=== PATIENT | male | born 1975 | race Two or more races ===

== ENCOUNTER 2020-08-23 20:52 | Emergency (ER) | payer MEDICAID ==
[~2020-08-23] VITALS: Ht 167.6 cm; Wt 87.1 kg
[2020-08-23] MEDS ORDERED: ACETAMINOPHEN 325 MG TAB PO ONE (21:15)
[2020-08-23 22:41] VITALS: BP 116/75
[2020-08-23] MEDS ORDERED: cefTRIAXone SOD 1,000 MG VL IM ONE (23:15)
[2020-08-23] MEDS ORDERED: KETOROLAC TROMETH 60MG/2ML VIAL IM ONE (23:15)
== END 2020-08-23 23:59 | disposition home or self-care (01) ==
LOC: ER 20:52
DX: L02.31 Cutaneous abscess of buttock (principal)
CPT/HCPCS: 96372; 99284; J0696; J1885

== ENCOUNTER → 2020-10-30 | Emergency (ER) | payer MEDICAID, OTHER ==
[~2020-10-30] VITALS: Ht 167.6 cm; Wt 86.2 kg
[2020-10-30 11:12] VITALS: BP 154/87
== END | disposition home or self-care (01) ==
LOC: ER 10:42
DX: S63.91XA Sprain of unspecified part of right wrist and hand, initial encounter (principal); S60.321A Blister (nonthermal) of right thumb, initial encounter; X58.XXXA Exposure to other specified factors, initial encounter; Y93.89 Activity, other specified; Y92.89 Other specified places as the place of occurrence of the external cause; Y99.8 Other external cause status
CPT/HCPCS: 73130

== ENCOUNTER → 2022-04-21 | Emergency (ER) | payer MEDICAID ==
[~2022-04-21] VITALS: Ht 167.6 cm; Wt 77.1 kg
[~2022-04-21] MED LIST: GLYCOPYRROLATE 0.2 MG/ML 1ML VIAL ONE; HYDR-4902 PO; HYDROmorphone HCL 2 MG/ML VL/or syr ONE; IOHEXOL 300 MG/ML 100ML BOTTLE IJ ONE; LEVO750T8 PO; METOCLOPRAMIDE HCL 5MG/ml INJ 2ml VIAL ONE; METR500T PO; MIDAZOLAM HCL 2MG/2ML 2ml VIAL (1mg/ml) ONE; MORPHINE SULFATE 4 MG/ML SYR/VIAL IV ONE; NEOSTIGMINE 1 MG/ML INJ (10mg/10ML VIAL) ONE; ONDANSETRON HCL 4 MG/2 ML VIAL IV ONE; ONDANSETRON HCL 4 MG/2 ML VIAL ONE; POVIDONE IODINE 10 % TOPICAL OINT 30GM TOP ONE; PROPOFOL 10 MG/ML 20 ML IV ONE; SODIUM CHLORIDE 0.9% 500 ML IVB ONE; SUCCINYLCHOLINE CHLORIDE 20 MG/ML 10ML VIAL IV ONE; ceFAZolin 1GM VL ONE; fentaNYL CITRATE 100 MCG/2 ML VL ONE
[2022-04-21 13:46] VITALS: BP 138/72
[2022-04-21 14:32] LABS: Basophils # (auto) 0.1 10 ^3/uL (0-0.2); Basophils % (auto) 0.5 % (0.0-2.0); Eosinophils # (auto) 0.1 10 ^3/uL (0-0.8); Eosinophils % (auto) 0.5 % (0.0-7.0); Hematocrit 48.9 % (41.0-53.0); Hemoglobin 16.7 g/dL (13.5-17.5); Lymphocytes # (auto) 1.3 10 ^3/uL (0.4-5.4); Lymphocytes % (auto) 10.3 % (10.0-50.0); Mean Corpuscular Hemoglobin 29.7 pg (28.0-32.0); Mean Corpuscular Hgb Conc. 34.2 g/dL (32.0-36.0); Monocytes # (auto) 0.7 10 ^3/uL (0-1.3); Monocytes % (auto) 5.4 % (0.0-12.0); Neutrophils # (auto) 10.8 10 ^3/uL (1.6-8.6); Neutrophils % (auto) 83.3 % (37.0-80.0); Nucleated Red Blood Cells % 0.1 %; Red Blood Cells 5.63 10^6/uL (4.5-5.90); Red Cell Distribution Width 14.2 % (11.8-14.3); White Blood Cell 12.9 10^3/uL (4.4-10.8)
[2022-04-21 15:33] LABS: Albumin 4.1 g/dL (3.4-5.0); BUN/Creatinine Ratio 13.1; Calcium 9.2 mg/dL (8.5-10.1); Potassium 3.6 mmol/L (3.5-5.1)
[2022-04-21 15:36] LABS: Bilirubin, Total 0.7 mg/dL (0.2-1.0); Total Protein 7.9 g/dL (6.4-8.2)
== END | disposition home or self-care (01) ==
LOC: EDUNIT# 13:45 → ER 13:46 → EDBD 13:46
DX: K40.90 Unilateral inguinal hernia, without obstruction or gangrene, not specified as recurrent (principal); F17.210 Nicotine dependence, cigarettes, uncomplicated
CPT/HCPCS: 36415; 74177; 76870; 80053; 83690; 85025; 99285; Q9967

== ENCOUNTER 2022-04-22 06:05 | Inpatient (IN) | payer MEDICAID ==
[~2022-04-22] VITALS: Ht 167.6 cm; Wt 87.4 kg
[2022-04-22 10:09] LABS: Basophils # (auto) 0.1 10 ^3/uL (0-0.2); Basophils % (auto) 0.4 % (0.0-2.0); Eosinophils # (auto) 0.1 10 ^3/uL (0-0.8); Eosinophils % (auto) 0.9 % (0.0-7.0); Hematocrit 49.8 % (41.0-53.0); Hemoglobin 16.6 g/dL (13.5-17.5); Lymphocytes # (auto) 1.3 10 ^3/uL (0.4-5.4); Mean Corpuscular Hemoglobin 29.5 pg (28.0-32.0); Mean Corpuscular Hgb Conc. 33.3 g/dL (32.0-36.0); Mean Corpuscular Volume 88.6 fL (80.0-100.0); Monocytes # (auto) 0.8 10 ^3/uL (0-1.3); Monocytes % (auto) 5.8 % (0.0-12.0); Neutrophils # (auto) 11.1 10 ^3/uL (1.6-8.6); Neutrophils % (auto) 82.9 % (37.0-80.0); Nucleated Red Blood Cells % 0.1 %; Red Blood Cells 5.63 10^6/uL (4.5-5.90); White Blood Cell 13.4 10^3/uL (4.4-10.8)
[2022-04-22 10:22] LABS: Albumin 3.9 g/dL (3.4-5.0); Calcium 8.8 mg/dL (8.5-10.1); Potassium 3.8 mmol/L (3.5-5.1)
[2022-04-22 10:25] LABS: Bilirubin, Total 0.8 mg/dL (0.2-1.0); Total Protein 8.3 g/dL (6.4-8.2)
[2022-04-22] MEDS ORDERED: SODIUM CHLORIDE 0.9% 1,000 ML IV ONE (11:30)
[2022-04-22] MEDS ORDERED: fentaNYL CITRATE 100 MCG/2 ML VL IV ONE (11:30)
[2022-04-22] MEDS ORDERED: LACTATED RINGER'S 1,000 ML IV ONE (11:45)
[2022-04-22] MEDS ORDERED: ceFAZolin 1GM/50ML 50 ML IV ONE (11:45)
[2022-04-22] MEDS ORDERED: ONDANSETRON HCL 4 MG/2 ML VIAL IV PRN ×2 (11:45→15:00)
[2022-04-22] MEDS ORDERED: BENZOCAINE (DENTAL) 20 % SPRAY 60ML MT ONE (12:11)
[2022-04-22 12:34] LABS: INR 1.05 (0.9-1.15); Partial Thromboplastin Time 32.4 sec (23.6-33.0)
[2022-04-22] MEDS ORDERED: cefTRIAXone 1GM/50ML D5W 50 ML IV ONE (13:00)
[2022-04-22] MEDS ORDERED: fentaNYL CITRATE 100 MCG/2 ML VL IV PRN (15:00)
[2022-04-22] MEDS ORDERED: HYDROmorphone HCL 2 MG/ML VL/or syr IV PRN ×2 (15:00)
[2022-04-22] MEDS ORDERED: METOCLOPRAMIDE HCL 5MG/ml INJ 2ml VIAL IV PRN (15:00)
[2022-04-22] MEDS ORDERED: ePHEDrine SULFATE 50 MG/ML AMP IV PRN (15:00)
[2022-04-22] MEDS: D5W/SOD CHL 0.45%/KCL 20MEQ 1,000 ML IV SCH (16:19)
[2022-04-22 17:34] VITALS: BP 147/87
[2022-04-22] MEDS: ceFAZolin 1GM/50ML 50 ML IV SCH (20:08)
[2022-04-22 21:29] VITALS: BP 147/87
[2022-04-22 22:00] VITALS: BP 108/72
[2022-04-23] MEDS: D5W/SOD CHL 0.45%/KCL 20MEQ 1,000 ML IV SCH ×4 (00:47→15:45)
[2022-04-23] MEDS: ceFAZolin 1GM/50ML 50 ML IV SCH ×3 (04:09→20:49)
[2022-04-23 05:00] VITALS: BP 129/70
[2022-04-23] MEDS: MORPHINE SULFATE INJ 2 MG/ml SYRG IV PRN ×3 (06:43→21:50)
[2022-04-23 07:16] LABS: Basophils # (auto) 0 10 ^3/uL (0-0.2); Eosinophils # (auto) 0 10 ^3/uL (0-0.8); Hematocrit 44.2 % (41.0-53.0); Lymphocytes % (auto) 7.6 % (10.0-50.0); Mean Corpuscular Hemoglobin 29.8 pg (28.0-32.0); Mean Corpuscular Hgb Conc. 33.9 g/dL (32.0-36.0); Mean Corpuscular Volume 88.1 fL (80.0-100.0); Monocytes % (auto) 7.5 % (0.0-12.0); Neutrophils # (auto) 10.8 10 ^3/uL (1.6-8.6); Neutrophils % (auto) 84.9 % (37.0-80.0); Red Blood Cells 5.01 10^6/uL (4.5-5.90); Red Cell Distribution Width 13.8 % (11.8-14.3); White Blood Cell 12.7 10^3/uL (4.4-10.8)
[2022-04-23 07:18] LABS: Calcium 8.2 mg/dL (8.5-10.1); Potassium 3.9 mmol/L (3.5-5.1)
[2022-04-23 07:21] LABS: Bilirubin, Total 0.6 mg/dL (0.2-1.0); Total Protein 6.9 g/dL (6.4-8.2)
[2022-04-23 08:00] VITALS: BP 104/70
[2022-04-23 08:30] VITALS: BP 114/69
[2022-04-23] MEDS: PANTOPRAZOLE 40 MG/10 ML VIAL INJ IV SCH (10:21)
[2022-04-23 12:00] VITALS: BP 114/69
[2022-04-23 16:00] VITALS: BP 122/65
[2022-04-23] MEDS: MORPHINE SULFATE 4 MG/ML SYR/VIAL IV PRN (18:15)
[2022-04-23 22:00] VITALS: BP 117/70
[2022-04-23] MEDS ORDERED: DOCUSATE SOD 100 MG CAP PO ONE (22:45)
[2022-04-24] MEDS: D5W/SOD CHL 0.45%/KCL 20MEQ 1,000 ML IV SCH ×3 (00:40→16:45)
[2022-04-24] MEDS: MORPHINE SULFATE INJ 2 MG/ml SYRG IV PRN ×3 (02:47→10:40)
[2022-04-24 05:00] VITALS: BP_SYST 125
[2022-04-24] MEDS: ceFAZolin 1GM/50ML 50 ML IV SCH ×3 (05:31→21:27)
[2022-04-24 08:00] VITALS: BP 130/80
[2022-04-24 08:30] VITALS: BP 125/89
[2022-04-24] MEDS: PANTOPRAZOLE 40 MG/10 ML VIAL INJ IV SCH (10:38)
[2022-04-24] MEDS: DOCUSATE SOD 100 MG CAP PO SCH ×2 (10:40→23:28)
[2022-04-24 13:00] VITALS: BP 129/88
[2022-04-24 16:30] VITALS: BP 133/86
[2022-04-24] MEDS: MORPHINE SULFATE 4 MG/ML SYR/VIAL IV PRN (21:29)
[2022-04-24 22:00] VITALS: BP 129/86
[2022-04-25] MEDS: D5W/SOD CHL 0.45%/KCL 20MEQ 1,000 ML IV SCH ×3 (01:05→17:53)
[2022-04-25] MEDS: ceFAZolin 1GM/50ML 50 ML IV SCH ×3 (03:43→20:16)
[2022-04-25 05:00] VITALS: BP 117/81
[2022-04-25] MEDS ORDERED: LEVO750T8 PO (08:46)
[2022-04-25] MEDS ORDERED: HYDR-4902 PO (08:46)
[2022-04-25] MEDS ORDERED: METR500T PO (08:46)
[2022-04-25 09:51] VITALS: BP 113/85
[2022-04-25] MEDS: PANTOPRAZOLE 40 MG/10 ML VIAL INJ IV SCH (10:20)
[2022-04-25] MEDS: DOCUSATE SOD 100 MG CAP PO SCH ×2 (10:20→22:20)
[2022-04-25 13:00] VITALS: BP 123/75
[2022-04-25 17:00] VITALS: BP 115/76
[2022-04-25 22:00] VITALS: BP 124/74
[2022-04-25] MEDS: MORPHINE SULFATE 4 MG/ML SYR/VIAL IV PRN (23:21)
[2022-04-26] MEDS: D5W/SOD CHL 0.45%/KCL 20MEQ 1,000 ML IV SCH ×2 (02:05→10:37)
[2022-04-26] MEDS: ceFAZolin 1GM/50ML 50 ML IV SCH ×2 (03:54→12:42)
[2022-04-26 05:00] VITALS: BP 115/70
[2022-04-26 08:00] VITALS: BP 106/69
[2022-04-26] MEDS: DOCUSATE SOD 100 MG CAP PO SCH (10:00)
[2022-04-26] MEDS: PANTOPRAZOLE 40 MG/10 ML VIAL INJ IV SCH (11:43)
[2022-04-26 12:00] VITALS: BP 115/74
[2022-04-26] MEDS ORDERED: HYDROcodone-ACET 7.5/325MG TAB PO ONE (13:00)
[2022-04-26 15:12] VITALS: BP 106/69
== END 2022-04-26 16:15 | disposition home or self-care (01) | DRG 228 ==
LOC: ER 06:05 → OVERFLOW 11:43 → CENTRAL 15:19
PROVIDERS: ADMIT Registered Nurse; ATTEND Family Medicine
PROC: 0YQ50ZZ Repair Right Inguinal Region, Open Approach (ICD-10-PCS; principal; 2022-04-22 13:09)
DX: K40.30 Unilateral inguinal hernia, with obstruction, without gangrene, not specified as recurrent (principal); F12.10 Cannabis abuse, uncomplicated; Z20.822 Contact with and (suspected) exposure to COVID-19; F15.10 Other stimulant abuse, uncomplicated; F17.210 Nicotine dependence, cigarettes, uncomplicated; Z83.3 Family history of diabetes mellitus
CPT/HCPCS: 36415; 74176; 76870; 80053; 83605; 85025; 85610; 85730; 86850; 86900; 86901; 88302; 96361; 96374; 96375; 99291; C9113; G0378; J0690; J0696

== ENCOUNTER 2022-05-11 23:46 | Emergency (ER) | payer MEDICAID ==
[~2022-05-11] VITALS: Ht 167.6 cm; Wt 80.7 kg
[~2022-05-11 23:46] MED LIST changes: -GLYCOPYRROLATE 0.2 MG/ML 1ML VIAL ONE; -HYDROmorphone HCL 2 MG/ML VL/or syr ONE; -IOHEXOL 300 MG/ML 100ML BOTTLE IJ ONE; -METOCLOPRAMIDE HCL 5MG/ml INJ 2ml VIAL ONE; -MIDAZOLAM HCL 2MG/2ML 2ml VIAL (1mg/ml) ONE; -MORPHINE SULFATE 4 MG/ML SYR/VIAL IV ONE; -NEOSTIGMINE 1 MG/ML INJ (10mg/10ML VIAL) ONE; -ONDANSETRON HCL 4 MG/2 ML VIAL IV ONE; -ONDANSETRON HCL 4 MG/2 ML VIAL ONE; -POVIDONE IODINE 10 % TOPICAL OINT 30GM TOP ONE; -PROPOFOL 10 MG/ML 20 ML IV ONE; -SODIUM CHLORIDE 0.9% 500 ML IVB ONE; -SUCCINYLCHOLINE CHLORIDE 20 MG/ML 10ML VIAL IV ONE; -ceFAZolin 1GM VL ONE; -fentaNYL CITRATE 100 MCG/2 ML VL ONE
[2022-05-12] MEDS ORDERED: HYDROcodone-ACET 5/325MG TAB PO ONE (03:30)
[2022-05-12] MEDS ORDERED: HYDR-4902 PO (03:32)
[2022-05-12 03:53] VITALS: BP 118/74
== END 2022-05-12 04:11 | disposition home or self-care (01) ==
LOC: ER 23:46
DX: G89.18 Other acute postprocedural pain (principal); R10.30 Lower abdominal pain, unspecified; F17.210 Nicotine dependence, cigarettes, uncomplicated; Z79.2 Long term (current) use of antibiotics; Z79.899 Other long term (current) drug therapy
CPT/HCPCS: 74176

== ENCOUNTER 2022-05-15 00:24 | Inpatient (IN) | payer MEDICAID ==
[~2022-05-15] VITALS: Ht 167.6 cm; Wt 81.1 kg
[2022-05-15 00:50] VITALS: BP 116/68
[2022-05-15] MEDS ORDERED: ONDANSETRON HCL 4 MG/2 ML VIAL IV PRN (01:15)
[2022-05-15] MEDS ORDERED: ACETAMINOPHEN 325 MG TAB PO PRN (01:15)
[2022-05-15 02:14] LABS: Basophils # (auto) 0 10 ^3/uL (0-0.2); Basophils % (auto) 0.2 % (0.0-2.0); Eosinophils # (auto) 0 10 ^3/uL (0-0.8); Eosinophils % (auto) 0.1 % (0.0-7.0); Hemoglobin 14.2 g/dL (13.5-17.5); Lymphocytes % (auto) 7.1 % (10.0-50.0); Mean Corpuscular Hemoglobin 29.7 pg (28.0-32.0); Mean Corpuscular Hgb Conc. 33.8 g/dL (32.0-36.0); Monocytes # (auto) 0.9 10 ^3/uL (0-1.3); Monocytes % (auto) 6.4 % (0.0-12.0); Neutrophils % (auto) 86.2 % (37.0-80.0); Red Blood Cells 4.77 10^6/uL (4.5-5.90); Red Cell Distribution Width 13.6 % (11.8-14.3); White Blood Cell 13.9 10^3/uL (4.4-10.8)
[2022-05-15 02:30] LABS: Albumin 2.9 g/dL (3.4-5.0); BUN/Creatinine Ratio 8.9; Calcium 8.1 mg/dL (8.5-10.1)
[2022-05-15 02:33] LABS: Bilirubin, Total 0.5 mg/dL (0.2-1.0); Total Protein 7.7 g/dL (6.4-8.2)
[2022-05-15 03:01] LABS: INR 1.05 (0.9-1.15); Partial Thromboplastin Time 30.2 sec (23.6-33.0)
[2022-05-15 03:07] LABS: Urine Bacteria NONE SEEN /hpf (None Seen); Urine Blood Negative /uL (Negative); Urine Mucus FEW (None Seen); Urine Specific Gravity 1.025 (1.001-1.035); Urine WBC 5 /hpf (0 - 3)
[2022-05-15 04:37] VITALS: BP 107/59
[2022-05-15] MEDS: D5W/SOD CHLO 0.9% 1,000 ML IV SCH ×2 (06:06→14:35)
[2022-05-15] MEDS ORDERED: VANCOMYCIN PER PHARMACY 0 MG IV SCH (06:15)
[2022-05-15] MEDS ORDERED: VANCOMYCIN 1GM/250ML 250 ML IV ONE (06:15)
[2022-05-15] MEDS: cefTRIAXone 1GM/50ML D5W 50 ML IV SCH (06:23)
[2022-05-15 08:00] VITALS: BP 101/60
[2022-05-15] MEDS: MORPHINE SULFATE INJ 2 MG/ml SYRG IV PRN ×2 (08:51→20:43)
[2022-05-15] MEDS: HYDROcodone-ACET 5/325MG TAB PO PRN (16:38)
[2022-05-15] MEDS ORDERED: SODIUM CHLORIDE 0.9% 1,000 ML IV SCH (18:15)
[2022-05-15] MEDS: VANCOMYCIN 1GM/250ML 250 ML IV SCH (18:38)
[2022-05-15 22:00] VITALS: BP 114/64
[2022-05-16] MEDS: D5W/SOD CHLO 0.9% 1,000 ML IV SCH ×2 (03:50→14:01)
[2022-05-16 05:00] VITALS: BP 107/56
[2022-05-16] MEDS: VANCOMYCIN 1GM/250ML 250 ML IV SCH ×2 (06:36→18:53)
[2022-05-16 06:43] LABS: Basophils # (auto) 0 10 ^3/uL (0-0.2); Basophils % (auto) 0.2 % (0.0-2.0); Eosinophils # (auto) 0 10 ^3/uL (0-0.8); Eosinophils % (auto) 0.2 % (0.0-7.0); Hematocrit 41.5 % (41.0-53.0); Hemoglobin 13.9 g/dL (13.5-17.5); Lymphocytes # (auto) 0.9 10 ^3/uL (0.4-5.4); Lymphocytes % (auto) 6.3 % (10.0-50.0); Mean Corpuscular Hemoglobin 29.3 pg (28.0-32.0); Mean Corpuscular Hgb Conc. 33.6 g/dL (32.0-36.0); Mean Corpuscular Volume 87.3 fL (80.0-100.0); Monocytes % (auto) 7.1 % (0.0-12.0); Neutrophils # (auto) 12.3 10 ^3/uL (1.6-8.6); Neutrophils % (auto) 86.2 % (37.0-80.0); Nucleated Red Blood Cells % 0.1 %; Red Blood Cells 4.76 10^6/uL (4.5-5.90); Red Cell Distribution Width 13.6 % (11.8-14.3); White Blood Cell 14.3 10^3/uL (4.4-10.8)
[2022-05-16 06:57] LABS: Albumin 2.5 g/dL (3.4-5.0); BUN/Creatinine Ratio 8.5; Calcium 8.4 mg/dL (8.5-10.1); Phosphorus 2.8 mg/dL (2.5-4.90); Potassium 3.7 mmol/L (3.5-5.1)
[2022-05-16] MEDS: cefTRIAXone 1GM/50ML D5W 50 ML IV SCH (08:29)
[2022-05-16] MEDS: HYDROcodone-ACET 5/325MG TAB PO PRN ×3 (08:29→18:31)
[2022-05-16 09:13] VITALS: BP 106/61
[2022-05-16 13:00] VITALS: BP 96/58
[2022-05-16 17:00] VITALS: BP 96/55
[2022-05-16 21:57] VITALS: BP 104/67
[2022-05-16] MEDS: MORPHINE SULFATE INJ 2 MG/ml SYRG IV PRN (22:32)
[2022-05-17] MEDS: VANCOMYCIN 1GM/250ML 250 ML IV SCH ×3 (02:42→18:47)
[2022-05-17 04:56] VITALS: BP 98/57
[2022-05-17] MEDS: D5W/SOD CHLO 0.9% 1,000 ML IV SCH (06:35)
[2022-05-17 07:04] LABS: BUN/Creatinine Ratio 8.5; Calcium 8.5 mg/dL (8.5-10.1); Potassium 3.9 mmol/L (3.5-5.1)
[2022-05-17 07:42] LABS: Basophils # (auto) 0 10 ^3/uL (0-0.2); Basophils % (auto) 0.1 % (0.0-2.0); Eosinophils # (auto) 0.1 10 ^3/uL (0-0.8); Eosinophils % (auto) 0.6 % (0.0-7.0); Hematocrit 41.9 % (41.0-53.0); Hemoglobin 14.1 g/dL (13.5-17.5); Lymphocytes # (auto) 0.8 10 ^3/uL (0.4-5.4); Lymphocytes % (auto) 7.6 % (10.0-50.0); Mean Corpuscular Hemoglobin 29.2 pg (28.0-32.0); Mean Corpuscular Hgb Conc. 33.6 g/dL (32.0-36.0); Mean Corpuscular Volume 86.9 fL (80.0-100.0); Monocytes # (auto) 0.7 10 ^3/uL (0-1.3); Monocytes % (auto) 6.8 % (0.0-12.0); Neutrophils # (auto) 9.1 10 ^3/uL (1.6-8.6); Neutrophils % (auto) 84.9 % (37.0-80.0); Nucleated Red Blood Cells % 0.1 %; Red Blood Cells 4.82 10^6/uL (4.5-5.90); Red Cell Distribution Width 13.5 % (11.8-14.3); White Blood Cell 10.7 10^3/uL (4.4-10.8)
[2022-05-17 09:00] VITALS: BP 111/62
[2022-05-17] MEDS: cefTRIAXone 1GM/50ML D5W 50 ML IV SCH (09:18)
[2022-05-17] MEDS: HYDROcodone-ACET 5/325MG TAB PO PRN ×3 (10:50→20:59)
[2022-05-17 13:00] VITALS: BP 107/68
[2022-05-17 17:00] VITALS: BP 106/66
[2022-05-17 22:00] VITALS: BP 112/59
[2022-05-18] MEDS: VANCOMYCIN 1GM/250ML 250 ML IV SCH ×2 (02:32→11:40)
[2022-05-18 05:00] VITALS: BP 93/53
[2022-05-18 08:54] VITALS: BP 93/52
[2022-05-18] MEDS: cefTRIAXone 1GM/50ML D5W 50 ML IV SCH (09:13)
[2022-05-18] MEDS: HYDROcodone-ACET 5/325MG TAB PO PRN (09:13)
[2022-05-18] MEDS ORDERED: SULF800T8 PO (10:26)
[2022-05-18] MEDS ORDERED: SULFAMETHOX W/TRIMETH(800/160MG) DS TAB PO ONE (10:30)
[2022-05-18 12:54] VITALS: BP 99/60
[2022-05-18 13:33] VITALS: BP 99/60
== END 2022-05-18 16:00 | disposition home or self-care (01) | DRG 721 ==
LOC: CENTRAL 00:41
PROVIDERS: ADMIT Internal Medicine; ATTEND Internal Medicine
DX: T81.40XA Infection following a procedure, unspecified, initial encounter (principal); A41.02 Sepsis due to Methicillin resistant Staphylococcus aureus; T81.44XA Sepsis following a procedure, initial encounter; B95.62 Methicillin resistant Staphylococcus aureus infection as the cause of diseases classified elsewhere; L02.214 Cutaneous abscess of groin; N39.0 Urinary tract infection, site not specified; F15.90 Other stimulant use, unspecified, uncomplicated; Z20.822 Contact with and (suspected) exposure to COVID-19; Y83.8 Other surgical procedures as the cause of abnormal reaction of the patient, or of later complication, without mention of misadventure at the time of the procedure; Y92.89 Other specified places as the place of occurrence of the external cause
CPT/HCPCS: 36415; 76881; 76942; 80048; 80053; 80069; 80202; 81001; 85025; 85610; 85730; 87040; 87077; 87081; 87186; 87205; G0378; J0696

== ENCOUNTER 2022-11-01 12:57 | Emergency (ER) | payer MEDICAID ==
[~2022-11-01] VITALS: Ht 167.6 cm; Wt 82.6 kg
[~2022-11-01 12:57] MED LIST changes: +SULF800T8 PO
[2022-11-01 13:32] LABS: Basophils # (auto) 0 10 ^3/uL (0-0.2); Basophils % (auto) 0.4 % (0.0-2.0); Eosinophils # (auto) 0.1 10 ^3/uL (0-0.8); Hemoglobin 15.1 g/dL (13.5-17.5); Lymphocytes # (auto) 1.7 10 ^3/uL (0.4-5.4); Lymphocytes % (auto) 27.9 % (10.0-50.0); Mean Corpuscular Hemoglobin 28.9 pg (28.0-32.0); Mean Corpuscular Hgb Conc. 33.5 g/dL (32.0-36.0); Mean Corpuscular Volume 86.3 fL (80.0-100.0); Monocytes # (auto) 0.4 10 ^3/uL (0-1.3); Monocytes % (auto) 6.7 % (0.0-12.0); Nucleated Red Blood Cells % 0.1 %; Red Blood Cells 5.22 10^6/uL (4.5-5.90); Red Cell Distribution Width 14.2 % (11.8-14.3); White Blood Cell 6.2 10^3/uL (4.4-10.8)
[2022-11-01 13:57] LABS: Albumin 3.8 g/dL (3.4-5.0); Calcium 8.7 mg/dL (8.5-10.1); Potassium 4.2 mmol/L (3.5-5.1)
[2022-11-01 14:01] LABS: BUN/Creatinine Ratio 14.4; Bilirubin, Total 0.4 mg/dL (0.2-1.0); Total Protein 7.4 g/dL (6.4-8.2)
[2022-11-01 14:54] LABS: Urine Bacteria NONE SEEN /hpf (None Seen); Urine Blood Negative /uL (Negative); Urine Mucus FEW (None Seen); Urine Specific Gravity 1.021 (1.001-1.035); Urine WBC <1 /hpf (0 - 3)
[2022-11-01 20:59] VITALS: BP 123/55
== END 2022-11-01 21:04 | disposition home or self-care (01) ==
LOC: ER 12:59
DX: K40.90 Unilateral inguinal hernia, without obstruction or gangrene, not specified as recurrent (principal); K42.9 Umbilical hernia without obstruction or gangrene; F17.210 Nicotine dependence, cigarettes, uncomplicated; F12.10 Cannabis abuse, uncomplicated; F15.10 Other stimulant abuse, uncomplicated
CPT/HCPCS: 36415; 74176; 80053; 81001; 83690; 84484; 85025